=== PATIENT | female | born 1975 | race Caucasian/White ===

== ENCOUNTER 2022-06-17 19:55 | Emergency (ER) | payer BC ==
[2022-06-17] MEDS ORDERED: Aspirin 81 MG Tab.Chew PO ONE (20:24)
[2022-06-17] MEDS ORDERED: Alum Hydrox/Mag Hydrox/Simeth 30 ML, Lidocaine 2% 15 ML PO ONE ×2 (20:24)
[2022-06-17] MEDS ORDERED: Heparin Sodium 5,000 Units/ML Vial IVPUSH ONE ×2 (20:52→22:41)
[2022-06-17] MEDS ORDERED: atorvaSTATin 40 MG Tab PO ONE (20:57)
[2022-06-17] MEDS ORDERED: Clopidogrel 75 MG Tab PO ONE (20:57)
[2022-06-17] MEDS ORDERED: Metoprolol Tartrate 5 MG/5 ML SDV IVPUSH ONE (20:58)
[2022-06-17] MEDS ORDERED: Heparin Sodium/D5W 25,000 UNITS/500 ML BAG IV SCH ×2 (21:00→22:45)
[2022-06-17] MEDS ORDERED: Sodium Chloride 0.9% 10 ML Syringe FLUSH ONE (21:05)
[2022-06-17] MEDS ORDERED: Iopamidol 755 Mg/ML 100 ML Bottle IVPUSH ONE (21:05)
[2022-06-17] MEDS ORDERED: Sodium Chloride 0.9% 100 ML IV SCH (21:15)
[2022-06-18] MEDS ORDERED: Apixaban 5 MG Tab PO ONE (11:33)
== END 2022-06-18 11:57 | disposition home or self-care (01) ==
LOC: JD.ED 19:55
DX: I26.94 Multiple subsegmental thrombotic pulmonary emboli without acute cor pulmonale (principal); Z79.01 Long term (current) use of anticoagulants; Z20.822 Contact with and (suspected) exposure to COVID-19
CPT/HCPCS: 36415; 71046; 71275; 80053; 83605; 83615; 84484; 85025; 85379; 85610; 85730; 87635; 93005; 96365; 96375; 96376; 99285; A9270; J1644; J3490; Q9967; U0002

== ENCOUNTER 2022-07-13 15:37 | Emergency (ER) | payer BC ==
[2022-07-13] MEDS ORDERED: Famotidine 20 MG/2 ML SDV IVPUSH ONE (16:29)
[2022-07-13] MEDS ORDERED: diphenhydrAMINE 50 MG/ML SDV IVPUSH ONE (16:29)
== END 2022-07-13 21:51 | disposition home or self-care (01) ==
LOC: JD.ED 15:37
DX: L30.9 Dermatitis, unspecified (principal); Z79.01 Long term (current) use of anticoagulants
CPT/HCPCS: 36415; 80053; 85007; 85027; 85610; 85730; 86140; 93970; 96374; 96375; 99283; J1200; J3490

== ENCOUNTER 2022-07-28 11:36 | Emergency (ER) | payer BC ==
[2022-07-28] MEDS ORDERED: Sodium Chloride 0.9% 10 ML Syringe FLUSH PRN ×2 (12:00→12:44)
[2022-07-28] MEDS ORDERED: Iopamidol 755 Mg/ML 100 ML Bottle IVPUSH ONE (12:44)
[2022-07-28] MEDS ORDERED: Sodium Chloride 0.9% 100 ML IV SCH (12:45)
== END 2022-07-28 14:25 | disposition home or self-care (01) ==
LOC: JD.ED 11:36
DX: R06.02 Shortness of breath (principal); L30.9 Dermatitis, unspecified; I26.99 Other pulmonary embolism without acute cor pulmonale; Z79.01 Long term (current) use of anticoagulants
CPT/HCPCS: 36415; 71046; 71275; 80053; 83880; 84484; 85025; 85610; 86140; 93005; 99285; J3490; Q9967

== ENCOUNTER 2022-12-08 07:30 | Day surgery (SDC) | payer BC ==
[~2022-12-08 07:30] MED LIST: Lactated Ringers 1,000 ML IV SCH; Sodium Chloride 0.9% 10 ML Syringe FLUSH PRN; Sodium Chloride 0.9% 10 ML Syringe FLUSH SCH
[2022-12-08] MEDS ORDERED: fentaNYL 100 MCG/2 ML SDV ONE (07:34)
[2022-12-08] MEDS ORDERED: Midazolam 1 MG/ML 2 ML SDV ONE (07:34)
[2022-12-08] MEDS ORDERED: Propofol 200 MG/20 ML SDV ONE (07:34)
[2022-12-08] MEDS ORDERED: Ondansetron 4 MG/2 ML SDV IVPUSH PRN (08:45)
== END 2022-12-08 09:58 | disposition home or self-care (01) ==
LOC: JD.SDS 07:30
PROVIDERS: ATTEND Surgery
DX: K21.9 Gastro-esophageal reflux disease without esophagitis (principal); K31.7 Polyp of stomach and duodenum; K44.9 Diaphragmatic hernia without obstruction or gangrene; K22.89 Other specified disease of esophagus; F41.9 Anxiety disorder, unspecified; E66.9 Obesity, unspecified; Z88.8 Allergy status to other drugs, medicaments and biological substances; Z87.19 Personal history of other diseases of the digestive system; Z79.899 Other long term (current) drug therapy; Z68.36 Body mass index [BMI] 36.0-36.9, adult; Z86.711 Personal history of pulmonary embolism; Z79.01 Long term (current) use of anticoagulants; Z80.3 Family history of malignant neoplasm of breast
CPT/HCPCS: 43239; 81025; J2250; J2704; J3010; J7120; 00731

== ENCOUNTER 2023-11-16 06:51 | Emergency (ER) | payer BC ==
[2023-11-16] MEDS: Sodium Chloride 0.9% 10 ML Syringe FLUSH PRN (07:39)
[2023-11-16] MEDS: Sodium Chloride 0.9% 1,000 ML IV SCH (07:39)
[2023-11-16] MEDS: Ondansetron 4 MG/2 ML SDV IVPUSH ONE (07:40)
[2023-11-16] MEDS: HYDROmorphone 0.5 MG/0.5 ML Syringe IVPUSH ONE ×2 (07:42→09:48)
[2023-11-16] MEDS: Famotidine 20 MG/2 ML SDV IVPUSH ONE (07:44)
[2023-11-16 08:01] LABS: BASOPHILS PERCENT AUTO 0.3 % (0.0-1.0); EOSINOPHILS PERCENT AUTO 0.2 % (0.0-6.0); HEMATOCRIT 36.6 % (37.0-47.0); HEMOGLOBIN 12.5 gm/dl (12.0-16.0); IMMATURE GRAN ABSOLUTE AUTO 0.03 K/mm3 (0.00-0.05); IMMATURE GRAN PERCENT AUTO 0.3 % (0.0-0.4); LYMPHOCYTES ABSOLUTE AUTO 1.4 K/mm3 (1.0-4.8); MEAN CORPUSCULAR HEMOGLOBIN 31.8 pg (28.0-32.0); MEAN CORPUSCULAR HGB CONC 34.2 g/dl (32.0-36.0); MEAN CORPUSCULAR VOLUME 93.1 fl (83.0-99.0); MEAN PLATELET VOLUME 10.3 fl (9.4-12.3); MONOCYTES ABSOLUTE AUTO 0.4 K/mm3 (0.0-0.8); MONOCYTES PERCENT AUTO 3.8 % (0.0-8.0); NEUTROPHILS ABSOLUTE AUTO 8.6 K/mm3 (1.8-7.7); NEUTROPHILS PERCENT AUTO 82.4 % (41.0-71.0); PLATELET COUNT,PLT 256 K/mm3 (150-400); RED BLOOD CELL COUNT 3.93 M/mm3 (4.10-5.30); WHITE BLOOD CELL COUNT,WBC 10.39 K/mm3 (3.9-11.3)
[2023-11-16] MEDS: Iopamidol 612 MG/ML 30 ML SDV IVPUSH ONE (08:26)
[2023-11-16 08:32] LABS: A/G RATIO 1.2 (1-2); ALBUMIN 3.9 g/dl (3.4-5.0); ANION GAP 13.6 (5-15); BILIRUBIN TOTAL 0.5 mg/dL (0.2-1.0); BUN/CREATININE RATIO 7.5 (14-18); CALCIUM 8.9 mg/dL (8.5-10.1); CREATININE 0.8 mg/dL (0.55-1.02); EST CRCL DRUG DOSING (CG) 91.83 mL/min; POTASSIUM,K 3.6 mEq/L (3.5-5.1); PROTEIN TOTAL,TP 7.2 g/dl (6.4-8.2)
== END 2023-11-16 11:59 | disposition home or self-care (01) ==
LOC: JD.ED 06:51
DX: K80.20 Calculus of gallbladder without cholecystitis without obstruction (principal); K76.9 Liver disease, unspecified; Z88.8 Allergy status to other drugs, medicaments and biological substances; Z79.899 Other long term (current) drug therapy
CPT/HCPCS: 36415; 71045; 74177; 76705; 80053; 83690; 84484; 84703; 85025; 93005; 96361; 96374; 96375; 96376; 99284; J1170; J2405; J3490; J7030; Q9967

== ENCOUNTER 2023-12-16 09:45 | Day surgery (SDC) | payer BC ==
[~2023-12-16 09:45] MED LIST changes: -Lactated Ringers 1,000 ML IV SCH
[2023-12-16] MEDS: Lactated Ringers 1,000 ML IV SCH (10:15)
[2023-12-16] MEDS: Acetaminophen 325 MG Tab PO ONE (10:15)
[2023-12-16] MEDS: Famotidine 20 MG/2 ML SDV IVPUSH ONE (10:15)
[2023-12-16] MEDS ORDERED: Dexamethasone 4 MG/ML 5 ML MDV ONE (10:17)
[2023-12-16] MEDS ORDERED: Propofol 200 MG/20 ML SDV ONE (10:17)
[2023-12-16] MEDS ORDERED: Ondansetron 4 MG/2 ML SDV ONE (10:17)
[2023-12-16] MEDS ORDERED: Rocuronium 50 MG/5 ML Vial ONE (10:17)
[2023-12-16] MEDS ORDERED: fentaNYL 100 MCG/2 ML SDV ONE (10:17)
[2023-12-16] MEDS ORDERED: Sugammadex Sodium 200 MG/2 ML VIAL IV ONE (10:17)
[2023-12-16] MEDS ORDERED: Midazolam 1 MG/ML 2 ML SDV ONE (10:17)
[2023-12-16] MEDS ORDERED: HYDROmorphone 0.5 MG/0.5 ML Syringe ONE (10:18)
[2023-12-16] MEDS ORDERED: Ketamine 200 MG/20 ML MDV ONE (10:19)
[2023-12-16] MEDS ORDERED: ceFAZolin 2 GM Vial ONE (10:21)
[2023-12-16] MEDS ORDERED: Lidocaine 1% 5 ML VIAL ONE (11:30)
[2023-12-16] MEDS: Bupivacaine 0.5% 30 ML SDV ONE (11:50)
[2023-12-16] MEDS: EPINEPHrine 1 MG/ML SDV ONE (11:50)
[2023-12-16] MEDS ORDERED: Naloxone 0.4 MG/ML SDV IVPUSH PRN (11:57)
[2023-12-16] MEDS ORDERED: Lactated Ringers 1,000 ML IV ONE (12:15)
[2023-12-16] MEDS: Ondansetron 4 MG/2 ML SDV IVPUSH PRN (13:25)
[2023-12-16] MEDS: fentaNYL 100 MCG/2 ML SDV IVPUSH PRN (13:27)
[2023-12-16] MEDS: oxyCODONE 5 MG Tab PO PRN (14:38)
== END 2023-12-16 15:43 | disposition home or self-care (01) ==
LOC: JD.SDS 09:45
PROVIDERS: ATTEND Surgery
DX: K80.10 Calculus of gallbladder with chronic cholecystitis without obstruction (principal); K29.50 Unspecified chronic gastritis without bleeding; K22.70 Barrett's esophagus without dysplasia; K20.0 Eosinophilic esophagitis; K21.9 Gastro-esophageal reflux disease without esophagitis; E66.9 Obesity, unspecified; Z88.8 Allergy status to other drugs, medicaments and biological substances; Z68.26 Body mass index [BMI] 26.0-26.9, adult; Z79.899 Other long term (current) drug therapy
CPT/HCPCS: 43239; 47562; A9270; J0171; J0665; J0690; J1100; J1170; J2250; J2405; J2704; J3010; J3490; J7120; 00790